=== PATIENT | male | born 1945 | race Caucasian/White ===

== ENCOUNTER 2019-03-05 11:50 | Emergency (ER) | payer OTHER ==
[~2019-03-05] VITALS: Ht 180.3 cm; Wt 81.6 kg
[~2019-03-05 11:50] MED LIST: ASA81 MG PO; CARDURA XL4 MG/BOTTL PO; INDERAL1 MG/M1 IV; LISINOPRIL10 MG PO; METFORMIN HCL1000 MG PO; PERCOCET 5/321 UDTAB PO; RECTICARE30 GM TP; SYNTHROID50 MCG PO
== END 2019-03-05 12:46 | disposition home or self-care (01) ==
LOC: ER 11:50
DX: S31.153A Open bite of abdominal wall, right lower quadrant without penetration into peritoneal cavity, initial encounter (principal); W54.0XXA Bitten by dog, initial encounter; Y93.89 Activity, other specified; Y92.098 Other place in other non-institutional residence as the place of occurrence of the external cause; Y99.8 Other external cause status

== ENCOUNTER 2024-10-12 10:16 | Outpatient (CLI) | payer OTHER | END 2024-10-12 10:17 | disposition home or self-care (01) | LOC: NUCLEAR 10:16 | PROVIDERS: ATTEND Psychiatry & Neurology Clinical Neurophysiology | DX: G30.1 Alzheimer's disease with late onset (principal) | CPT/HCPCS: 78803; A9557 ==